=== PATIENT | female | born 1960 | race Two or more races ===

== ENCOUNTER 2018-02-19 21:40 | Emergency (ER) | payer MEDICAID ==
[~2018-02-19] VITALS: Ht 160 cm; Wt 52.6 kg
[2018-02-20 02:02] LABS: Hematocrit 43.8 % (36.0-46.0); Hemoglobin 14.6 g/dL (12.2-16.2); Mean Corpuscular Hemoglobin 29.5 pg (28.0-32.0); Mean Corpuscular Hgb Conc. 33.3 g/dL (32.0-36.0); Mean Corpuscular Volume 88.4 fL (80.0-100.0); Platelet Count (auto) 332 10^3/uL (140-450); Red Blood Cells 4.95 10^6/uL (4.0-5.20); Red Cell Distribution Width 14.6 % (11.8-14.3); White Blood Cell 9.1 10^3/uL (4.4-10.8)
[2018-02-20 02:16] LABS: INR 0.93 (0.9-1.15); Partial Thromboplastin Time 29.4 sec (23.78-33.04)
[2018-02-20 02:20] LABS: Calcium 9.1 mg/dL (8.5-10.1); Chloride 97 mmol/L (98-107); Potassium 4.4 mmol/L (3.5-5.1); Sodium 132 mmol/L (136-145)
[2018-02-20 02:23] LABS: Albumin 3.9 g/dL (3.4-5.0); Amylase 110 U/L (25-115); Anion Gap 11 (5-15); BUN/Creatinine Ratio 22.1; Blood Urea Nitrogen 17 mg/dL (7-18); Carbon Dioxide 24 mmol/L (21-32); GFR African American 99 mL/min; GFR Non-African American 82 mL/min; Glucose 217 mg/dL (74-106); Lipase 247 U/L (73-393); Magnesium 1.9 mg/dL (1.6-2.6)
[2018-02-20 02:31] LABS: Alanine Aminotransferase 19 U/L (13-56); Alkaline Phosphatase 109 U/L (45-117); Aspartate Aminotransferase 15 U/L (15-37); Bilirubin, Total 0.5 mg/dL (0.2-1.0); Total Protein 8.7 g/dL (6.4-8.2)
[2018-02-20 02:35] LABS: Band Neutrophils % (manual) 0; Basophils % (manual) 0 (0.0-2.0); Blast Cells 0; Eosinophils % (manual) 0 (0-7); Metamyelocytes % 0; Myelocytes % 0; Promyelocytes % 0; Reactive Lymphocytes 0
[2018-02-20 02:37] LABS: Urine Bacteria NONE SEEN /hpf (None Seen); Urine Blood Negative /uL (Negative); Urine Specific Gravity 1.017 (1.001-1.035); Urine WBC 1 /hpf (0 - 5)
[2018-02-20 03:17] LABS: Lymphocytes % (manual) 12 (10.0-50.0); Monocytes % (manual) 5 (0-12)
[2018-02-20] MEDS ORDERED: MORPHINE SULF INJ 2 MG/ML SYRINGE 1ML IV ONE ×2 (07:00)
[2018-02-20] MEDS ORDERED: ONDANSETRON HCL 4 MG/2 ML VIAL IV ONE ×2 (07:00)
[2018-02-20 07:50] VITALS: BP 108/74
== END 2018-02-20 14:08 | disposition home or self-care (01) ==
LOC: ER 21:40
DX: K29.70 Gastritis, unspecified, without bleeding (principal); R51 Headache; Z88.0 Allergy status to penicillin
CPT/HCPCS: 36415; 70450; 71046; 74176; 80053; 81001; 82150; 82962; 83690; 83735; 84484; 85007; 85027; 85610; 85730; 93005; 96374; 96375; 99285; J2270; J2405